=== PATIENT | female | born 1955 | race African-American/Black ===

== ENCOUNTER 2019-10-25 13:32 | Outpatient (CLI) | payer MEDICARE, SELFPAY ==
--- NOTE | ~2019-10-25 | MM_ITS ---
EXAMINATION: MM screening [facility] BI w maciel HISTORY: Screening mammogram TECHNIQUE: Craniocaudal and mediolateral oblique 3-D tomosynthesis images were obtained and synthetic 2-D images were generated. CAD analysis was submitted and interpreted. COMPARISON: Comparison to multiple prior studies sequentially, with oldest reviewed study dated 12/08. BREAST PARENCHYMAL COMPOSITION: There are scattered areas of fibroglandular density. FINDINGS: There is no evidence of suspicious mass, calcification, or architectural distortion to sugg est malignancy in either breast. There has been no suspicious interval change. IMPRESSION: 1. No mammographic evidence of malignancy. 2. Recommend routine screening mammography in one year. BI-RADS Category 1: Negative Reviewed, dictated and finalized at location A.
== END 2019-10-25 13:33 | disposition home or self-care (01) ==
PROVIDERS: PCP Family Medicine; Visit Provider Physician Assistant
DX: Z12.31 Encounter for screening mammogram for malignant neoplasm of breast (principal)
CPT/HCPCS: 77063; 77067

== ENCOUNTER 2020-01-24 13:25 | Outpatient (CLI) | payer MEDICARE, SELFPAY ==
--- NOTE | ~2020-01-24 | DEXA_ITS ---
Bone Density Report Name: Esther Faria Age: 64 Sex: Female Ethnicity: Black Date of : 1955 Indication: postmenopausal; height loss; Referring Provider: Grace Prajapati Study: Bone densitometry was performed. Exam Date: January 24, 2020 Accession number: [id number] Bone Density: Region BMD T-score Z-score Classification AP Spine (L1-L4) 1.006 -0.4 0.7 Normal Femoral Neck (Left) 0.739 -1.0 -0.2 Normal Total Hip (Left) 0.883 -0.5 0.0 Normal Total Hip Bilateral Avg 0.857 -0.7 -0.2 Normal Femoral Neck (Right) 0.679 -1.5 -0.6 Osteopenia Total Hip (Right) 0.831 -0.9 -0.3 Normal World Health Organization criteria for BMD impression classify patients as: Normal (T-score at or above -1.0), Osteopenia (T-score between -1.0 and -2.5), or Osteoporosis (T-score at or below -2.5). 10-year Fracture Risk(1): Major Osteoporotic Fracture 4.1% Hip Fracture 0.4% Reported Risk Factors: [place] (Black), Neck BMD=0.679, BMI=25.2 (1) FRAX(R) Version 3.08. Fracture probability calculated for an untreated patient. Fracture probability may be lower if the patient has received treatment. Previous Exams: Region Exam Age BMD T-score BMD Change BMD Change Date g/cm2 vs Baseline vs Previous AP Spine(L1-L4) 01/24/2020 64 1.006 -0.4 -0.309(-23.5%) -0.046(-4.4%)* 04/22/2015 59 1.052 0.0 -0.262(-19.9%) -0.150(-12.5%) 11/16/2010 55 1.202 1.4 -0.112(-8.5%)* -0.112(-8.5%)* 10/23/2005 50 1.314 2.4 Total Hip(Left) 01/24/2020 64 0.883 -0.5 -0.083(-8.6%)# -0.025(-2.8%) 04/22/2015 59 0.908 -0.3 -0.058(-6.0%)# -0.013(-1.4%)# 11/16/2010 55 0.921 -0.2 -0.045(-4.7%)* -0.045(-4.7%)* 10/23/2005 50 0.966 0.2 Total Hip(Right) 01/24/2020 64 0.831 -0.9 -0.091(-9.9%)# -0.033(-3.8%)* 04/22/2015 59 0.864 -0.6 -0.058(-6.3%)# -0.043(-4.8%)# 11/16/2010 55 0.907 -0.3 -0.015(-1.6%) -0.015(-1.6%) 10/23/2005 50 0.922 -0.2 *Denotes significance at 95% confidence level, LSC for AP Spine = 0.022 g/cm2, LSC for Total Hip = 0.027 g/cm2 Clinical Information Provided by Patient: Patient maximum height was 65 Menopause Age: 49 No regular weight bearing exercise Does not regularly consume dairy products Onset of menses at age 11 Number of children 1 Impression: The patient has low bone mass, based on the Right Femoral Neck T-score. The patient has an estimated ten-year risk of hip fracture of 0.4% and an estim
== END 2020-01-24 13:26 | disposition home or self-care (01) ==
LOC: ANHIMG 13:29
PROVIDERS: PCP Family Medicine; Visit Provider Physician Assistant
DX: Z78.0 Asymptomatic menopausal state (principal)
CPT/HCPCS: 77080

== ENCOUNTER 2021-04-12 09:10 | Outpatient (CLI) | payer MEDICARE, SELFPAY ==
--- NOTE | ~2021-04-12 | MM_ITS ---
EXAMINATION: MM screening [facility] BI w maciel HISTORY: Screening mammogram TECHNIQUE: Craniocaudal and mediolateral oblique 3-D tomosynthesis images were obtained and synthetic 2-D images were generated. CAD analysis was submitted and interpreted. COMPARISON: 10/25/2019, 10/21/2018, 10/14/2017 bilateral screening mammogram examinations BREAST PARENCHYMAL COMPOSITION: There are scattered areas of fibroglandular density. FINDINGS: There is no evidence of suspicious mass, calcification, or architectural distortion to sugg est malignancy in either breast. There has been no suspicious interval change. IMPRESSION: 1. No mammographic evidence of malignancy. 2. Recommend routine screening mammography in one year. BI-RADS Category 1: Negative Reviewed, dictated and finalized at location A. MBLER GOLD FRAME
== END 2021-04-12 09:11 | disposition home or self-care (01) ==
PROVIDERS: PCP Family Medicine; Visit Provider Physician Assistant
DX: Z12.31 Encounter for screening mammogram for malignant neoplasm of breast (principal)
CPT/HCPCS: 77063; 77067

== ENCOUNTER 2022-05-06 14:30 | Outpatient (CLI) | payer MEDICARE, SELFPAY ==
--- NOTE | ~2022-05-06 | MM_ITS ---
EXAMINATION: MM screening [facility] BI w maciel HISTORY: Screening mammogram TECHNIQUE: Craniocaudal and mediolateral oblique 3-D tomosynthesis images were obtained and synthetic 2-D images were generated. CAD analysis was submitted and interpreted. COMPARISON: 04/12/2021, 10/25/2019, 10/21/2018 bilateral screening mammogram examinations BREAST PARENCHYMAL COMPOSITION: There are scattered areas of fibroglandular density. FINDINGS: Biopsy marker on the right; history of prior benign right breast biopsy. Bilateral benign c alcifications. There is no evidence of suspicious mass, calcification, or architectural distortion to suggest malignancy in either breast. There has been no suspicious interval change. IMPRESSION: 1. No mammographic evidence of malignancy. 2. Recommend routine screening mammography in one year. BI-RADS Category 2: Benign finding(s).... Reviewed, dictated and finalized at location A. ING LOT SPOTTER
--- NOTE | ~2022-05-06 | DEXA_ITS ---
Bone Density Report Name: CK WOLF Age: 66 Sex: Female Ethnicity: Black Date of : 1955 Indication: postmenopausal; screening for osteoporosis; height loss; Referring Provider: DALY LIMA Study: Bone densitometry was performed. Exam Date: May 06, 2022 Accession number: [id number] Bone Density: Region BMD T-score Z-score Classification AP Spine(L1-L4) 0.996 -0.5 0.7 Normal Femoral Neck (Left) 0.711 -1.2 -0.3 Osteopenia Total Hip (Left) 0.856 -0.7 -0.1 Normal Femoral Neck (Right) 0.670 -1.6 -0.6 Osteopenia Total Hip (Right) 0.831 -0.9 -0.2 Normal Total Hip Mean 0.844 -0.8 -0.2 Normal World Health Organization criteria for BMD impression classify patients as: Normal (T-score at or above -1.0), Osteopenia (T-score between -1.0 and -2.5), or Osteoporosis (T-score at or below -2.5). 10-year Fracture Risk(1): Major Osteoporotic Fracture 4.4% Hip Fracture 0.6% Reported Risk Factors: [place] (Black), Neck BMD=0.670, BMI=25.8 (1) FRAX(R) Version 3.08. Fracture probability calculated for an untreated patient. Fracture probability may be lower if the patient has received treatment. Previous Exams: Region Exam Age BMD T-score BMD Change BMD Change Date g/cm2 vs Baseline vs Previous AP Spine (L1-L4) 05/06/2022 66 0.996 -0.5 -0.056 (-5.4%) -0.010 (-1.0%) 01/24/2020 64 1.006 -0.4 -0.046 (-4.4%) -0.046 (-4.4%) 04/22/2015 59 1.052 0.0 Total Hip(Left) 05/06/2022 66 0.856 -0.7 -0.051 (-5.7%) -0.026 (-3.0%) 01/24/2020 64 0.883 -0.5 -0.025 (-2.8%) -0.025 (-2.8%) 04/22/2015 59 0.908 -0.3 Total Hip(Right) 05/06/2022 66 0.831 -0.9 -0.033 (-3.8%) 0.000 (0.0%) 01/24/2020 64 0.831 -0.9 -0.033 (-3.8%) -0.033 (-3.8%) 04/22/2015 59 0.864 -0.6 *Denotes significance at 95% confidence level, LSC for AP Spine = 0.022 g/cm2, LSC for Total Hip = 0.027 g/cm2 Clinical Information Provided by Patient: Patient maximum height was 65 Menopause Age: 49 Does not regularly consume dairy products Drinks caffeinated beverages Onset of menses at age 11 Number of children 1 Impression: The patient has low bone mass, based on the Right Femoral Neck T-score. The patient has an estimated ten-year risk of hip fracture of 0.6% and an estimated ten-year risk of major fracture of 4.4%, based on the WHO FRAX algorithm. No significant bone loss was observed. Discussion: BONE DENSITY IS LOW
== END 2022-05-06 14:31 | disposition home or self-care (01) ==
LOC: ANHIMG 14:33
PROVIDERS: PCP Family Medicine; Visit Provider Family Medicine
DX: Z12.31 Encounter for screening mammogram for malignant neoplasm of breast (principal); Z78.0 Asymptomatic menopausal state; M85.852 Other specified disorders of bone density and structure, left thigh; M85.851 Other specified disorders of bone density and structure, right thigh
CPT/HCPCS: 77063; 77067; 77080

== ENCOUNTER 2023-07-03 15:24 | Outpatient (CLI) | payer MEDICARE, SELFPAY ==
--- NOTE | ~2023-07-03 | MM_ITS ---
EXAMINATION: MM screening [facility] BI w maciel HISTORY: Screening mammogram TECHNIQUE: Craniocaudal and mediolateral oblique 3-D tomosynthesis images were obtained and synthetic 2-D images were generated. CAD analysis was submitted and interpreted. COMPARISON: 05/06/2022, 04/12/2021, 10/25/2019 bilateral screening mammogram examinations BREAST PARENCHYMAL COMPOSITION: There are scattered areas of fibroglandular density. FINDINGS: Biopsy marker on the right; history of prior benign right breast biopsy. There is no eviden ce of suspicious mass, calcification, or architectural distortion to suggest malignancy in either rodolfo ast. There has been no suspicious interval change. IMPRESSION: 1. No mammographic evidence of malignancy. 2. Recommend routine screening mammography in one year. BI-RADS Category 1: Negative Reviewed, dictated and finalized at location A. LEWARE ADMINISTRATOR
== END 2023-07-03 15:25 | disposition home or self-care (01) ==
PROVIDERS: PCP Family Medicine; Visit Provider Family Medicine
DX: Z12.31 Encounter for screening mammogram for malignant neoplasm of breast (principal)
CPT/HCPCS: 77063; 77067

== ENCOUNTER 2024-08-13 09:05 | Outpatient (CLI) | payer MEDICARE, SELFPAY ==
--- NOTE | ~2024-08-13 | DEXA_ITS ---
Bone Density Report Name: CK WOLF Age: 69 Sex: Female Ethnicity: Black Date of : 1955 Indication: postmenopausal; screening for osteoporosis; height loss; Referring Provider: CK AKBAR Study: Bone densitometry was performed. Exam Date: August 13, 2024 Accession number: [id number] Bone Density: Region BMD T-score Z-score Classification AP Spine(L2, L3, L4) 1.069 -0.1 1.3 Normal Femoral Neck (Left) 0.725 -1.1 -0.2 Osteopenia Total Hip (Left) 0.876 -0.5 0.1 Normal Femoral Neck (Right) 0.721 -1.2 -0.2 Osteopenia Total Hip (Right) 0.877 -0.5 0.1 Normal Total Hip Mean 0.877 -0.5 0.1 Normal World Health Organization criteria for BMD impression classify patients as: Normal (T-score at or above -1.0), Osteopenia (T-score between -1.0 and -2.5), or Osteoporosis (T-score at or below -2.5). 10-year Fracture Risk(1): Major Osteoporotic Fracture 4.0% Hip Fracture 0.4% Reported Risk Factors: [place] (Black), Neck BMD=0.725, BMI=25.8 (1) FRAX(R) Version 3.08. Fracture probability calculated for an untreated patient. Fracture probability may be lower if the patient has received treatment. Previous Exams: Region Exam Age BMD T-score BMD Change BMD Change Date g/cm2 vs Baseline vs Previous AP Spine (L2-L4) 08/13/2024 69 1.069 -0.1 0.009 (0.8%) 0.062 (6.2%)* 05/06/2022 66 1.007 -0.7 -0.053 (-5.0%) -0.001 (-0.1%) 01/24/2020 64 1.008 -0.6 -0.052 (-4.9%) -0.052 (-4.9%) 04/22/2015 59 1.060 -0.2 Total Hip(Left) 08/13/2024 69 0.876 -0.5 -0.031 (-3.4%) 0.020 (2.4%) 05/06/2022 66 0.856 -0.7 -0.051 (-5.7%) -0.026 (-3.0%) 01/24/2020 64 0.883 -0.5 -0.025 (-2.8%) -0.025 (-2.8%) 04/22/2015 59 0.908 -0.3 Total Hip(Right) 08/13/2024 69 0.877 -0.5 0.013 (1.5%) 0.046 (5.5%)* 05/06/2022 66 0.831 -0.9 -0.033 (-3.8%) 0.000 (0.0%) 01/24/2020 64 0.831 -0.9 -0.033 (-3.8%) -0.033 (-3.8%) 04/22/2015 59 0.864 -0.6 *Denotes significance at 95% confidence level, LSC for AP Spine = 0.022 g/cm2, LSC for Total Hip = 0.027 g/cm2 Clinical Information Provided by Patient: Patient maximum height was 65 Menopause Age: 49 Does not regularly consume dairy products Drinks caffeinated beverages Onset of menses at age 11 Number of children 1 Impression: The patient has low bone mass, based on the Right Femoral Neck T-score. The patient has an estimated ten-year risk of hip fracture of 0.4% and an estimated ten-year risk of major fracture of 4%, based on the WHO FRAX algorithm. No significant bone loss was observed. Discussion: BONE DENSITY IS LOW AT ONE OR MORE SKELETAL SITES. This patient's lowest T-score is low at one or more skeletal sites. It meets the World Health Organization's (WHO) criteria for ?low bone mass? (T-score between -1.0 and -2.5). The patient's 10-year risk of fracture as calculated by FRAX is less than the threshold where pharmacological therapy is recommended by the National Osteoporosis Foundation (NOF). However, all treatment decisions require clinical judgment and consideration of individual patient factors, including patient preferences, comorbidities, previous drug use, risk factors not captured in the FRAX model (e.g., frailty, falls, vitamin D deficiency, increased bone turnover, interval significant decline in bone density) and possible under or overestimation of fracture risk by FRAX. The patient should follow a healthful lifestyle (good nutrition with adequate calcium and vitamin D, and appropriate weight-bearing exercise). Follow-Up: Consider repeating this study in 2 to 3 years to reassess this patient's status, or sooner if there is some new clinical indication. Reported by: RUBEN on 08/13/2024 9:50:00 AM. Reviewed, dictated and finalized at location AIzzy [facility]
--- NOTE | ~2024-08-13 | MM_ITS ---
EXAMINATION: MM screening alicia BI w maciel HISTORY: Screening TECHNIQUE: Craniocaudal and mediolateral oblique 3-D tomosynthesis images were obtained and synthetic 2-D images were generated. CAD analysis was submitted and interpreted. COMPARISON: Comparison to multiple prior studies sequentially, with oldest reviewed study dated 10/14. BREAST PARENCHYMAL COMPOSITION: Dense: The breasts are heterogeneously dense, which may obscure small masses FINDINGS: There is no evidence of suspicious mass, calcification, or architectural distortion to sugg est malignancy in either breast. There has been no suspicious interval change. IMPRESSION: 1. No mammographic evidence of malignancy. 2. Recommend routine screening mammography in one year. BI-RADS Category 1: Negative Reviewed, dictated and finalized at location B.
--- OUTSIDE RECORDS SUMMARY | 2024-08-13 09:12 | XMS_ITS | Clinical Summary ---
Author Organization [facility] [place] [address] [place] [address] Address [address] [place] [address] Care Team Providers Care It Administrative Assistant Name Role Phone Anahy Bernal DO Primary Care Provider +1- [phone] Allergies Active Allergy Reactions Criticality Noted Date Comments Erythromycin Stomach upset Low Reaction: upset stomach, Medications fluticasone (FLONASE) 50 mcg/actuation nasal spray inhale 1 spray by intranasal route every day in each nostril 0 spray 0 6 Active bisoprolol-hydro CHLOROthiazide (ZIAC) 2.5-6.25 mg per tablet 0 0 5 Active atorvastatin (LIPITOR) 10 mg tablet daily. Active venlafaxine XR (EFFEXOR-XR) 150 mg 24 hr capsule Take 1 capsule (150 mg total) by mouth daily 4 Active nitrofurantoin monohydrate (MACROBID) 100 mg capsuleIndicatio ns:Acute cystitis with hematuria Take 1 capsule (100 mg total) by mouth 2 (two) times a day for 5 days 10 capsule 5 08/04/19 25 Active Problems Problem Noted Date Diagnosed Date Sinusitis 06/23/2014 Overview (08/01/2016): Sinusitis Encounters Date Type Department Care Team Description 07/31/2024 Results Follow-Up [facility] [place] [address] [place] [address] Danay Mckeon NP 07/29/2024 8:57 PM CDT - 07/29/2024 11:59 PM CDT Hospital Encounter [facility] [address] [place] [address] Acute cystitis with hematuria Discharge Disposition: Discharge to home or self care 07/29/2024 4:30 PM CDT Office Visit [facility] [place] [address] [place] [address] Mariana Malhotra PA Acute cystitis with hematuria (Primary Dx) from Last 3 Months Surgical History Surgery Date Site/Laterality Comments OTHER SURGICAL HISTORY Surgery Left foot LIPOMA RESECTION back Medical History Medical History Date Comments Delivered by section Ce sarean delivery Hypertension Hyperlipidemia Anxiety Social History Tobacco Use Types Packs/Day Years Used Date Smoking Tobacco: Never Smokeless Tobacco: Never Tobacco Cessation:Counseling Given: Yes Comments No Sex and Gender Information Value Date Recorded Sex Assigned at Not on file 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 Gender Identity Not on file Sexual Orientation Not on file Obstetrics History Last Filed Vital Signs Vital Sign Reading Time Taken Comments Blood Pressure 128/68 07/29/2024 4:30 PM CDT Pulse 78 07/29/2024 4:30 PM CDT Temperature 36.6 C (97.8 F) 07/29/2024 4:30 PM CDT Respiratory Rate 17 07/29/2024 4:30 PM CDT Oxygen Saturation 98% 07/29/2024 4:30 PM CDT Inhaled Oxygen Concentration - - Weight 61.7 kg (136 lb) 07/29/2024 4:30 PM CDT Height 160 cm (5' 3 ) 07/29/2024 4:30 PM CDT Body Mass Index 24.09 07/29/2024 4:30 PM CDT Plan of Treatment Health Maintenance Due Date Last Done Comments Breast Cancer Screening-Mammogram 1955 Colon Cancer Screening-Colonoscopy 1955 Fall Risk Assessment 1955 Hepatitis C Screening 1955 Osteoporosis Screening-Bone Density Scan 1955 DTaP/Tdap/Td Vaccine (1 - Tdap) 1965 Hepatitis B Screening 1972 Pneumococcal vaccine 65+ (1 of 1 - PCV) 2004 Zoster Vaccine (2 of 3) 05/10/2015 03/15/2015 Depression Screening 07/11/2018 07/11/2017, 07/12/19 18 Well Visit 65+ 08/07/2019 Influenza Vaccine (Season Ended) 2024 Procedures Procedure Name Priority Date/Time Associated Diagnosis Comments POCT URINALYSIS DIPSTICK Routine 07/29/2024 4:38 PM CDT Acute cystitis with hematuria URINE CULTURE Routine 07/29/2024 12:00 PM CDT Acute cystitis with hematuria from Last 3 Months Results * (ABNORMAL) POCT urinalysis dipstick (07/29/2024 4:38 PM CDT) Color, Urine, POC Yellow Clarity, ur, POC Cloudy(A) Clear Glucose, ur, POC Negative Negative MG/DL Bilirubin, ur, POC Negative Negative, Small, Moderate, Large Ketones, ur, POC Negative Negative Specific [place], POC 1.025 1.003 - 1.030 Blood, ur, POC Moderate(A) Negative pH, ur, POC 6.0 5.0 - 8.0 Protein, ur, POC 300.(A) Negative Urobilinogen, urine, POC 1.0 0.2 - 1.0 mg/dL Nitrite, ur, POC Positive(A) Negative Leukocytes, ur, POC Moderate(A) Negative Lot Number [id number] Urine 07/29/2024 4:38 PM CDT Mariana MONAHAN POINT OF CARE TEST ORDERABLES Final Result * (ABNORMAL) Urine culture Urine, bladder (07/29/2024 12:00 PM CDT) Report Final Report: Greater than or equal to 100,000 colonies/mL of Escherichia coli (.) Comment:Testing performed by : [facility], [address] [place] [place]., [address] Organism ESCHERICHIA COLI STEFFI Urine, bladder 07/29/2024 12 :00 PM CDT 07/30/2024 12:14 AM CDT Narrative STEFFI VALLADARES - 08/01/2024 6:15 AM CDT Testing performed by [facility] Microbiology Laboratory ([phone]) Organism Antibiotic Method Susceptibility Escherichia coli Ampicillin INTERPRETATION Susceptible Escherichia coli Cefazolin INTERPRETATION Susceptible Escherichia coli Nitrofurantoin INTERPRETATION Susceptible Escherichia coli Gentamicin INTERPRETATION Susceptible Escherichia coli Trimethoprim with Sulfamethoxazole IN TERPRETATION Susceptible Escherichia coli Meropenem INTERPRETATION Susceptible Escherichia coli Cefepime INTERPRETATION Susceptible Escherichia coli Ciprofloxacin INTERPRETATION Susceptible Escherichia coli Ceftazidime INTERPRETATION Susceptible Escherichia coli Ceftriaxone INTERPRETATION Susceptible Escherichia coli Piperacillin/Tazobactam INTERPRETATIO N Susceptible Escherichia coli Cephalexin INTERPRETATION Susceptible Escherichia coli Cefuroxime-axetil INTERPRETATION Susceptible Escherichia coli Cefdinir INTERPRETATION Susceptible Mariana MONAHAN LAB MICROBIOLOGY - GENERAL ORDERABLES Final Result Performing Organization Address City/State/[facility] Co de Phone Number STEFFI [phone] [address] Department [place] [address] from Last 3 Months Insurance [facility] MDCR HMO [facility] MEDICARE Address: [facility] [address] [place] [address] [facility] MEDICARE ADVANTAGE Care Teams It Administrative Assistant Relationship Specialty Start Date End Date Anahy Bernal DO [address] [place] [address] [address] PCP - General Family Medicine 09/27/23
--- OUTSIDE RECORDS SUMMARY | 2024-08-13 09:12 | XMS_ITS | Referral Summary ---
Author Organization [facility] [address] [place] [address] Address [address] [place] [address] Care Team Providers Care Title Supervisor Name Role Phone Anahy Bernal DO Primary Care Provider +1- [phone] Encounters Date Type Department Care Team Description 07/31/2024 Results Follow-Up [facility] at [address] [phone] Danay Mckeon NP 07/29/2024 8:57 PM CDT - 07/29/2024 11:59 PM CDT Hospital Encounter [address] [address] Acute cystitis with hematuria Discharge Disposition: Discharge to home or self care 07/29/2024 4:30 PM CDT Office Visit [facility] at [address] [phone] Mariana Malhotra PA Acute cystitis with hematuria (Primary Dx) from Last 3 Months Allergies Active Allergy Reactions Criticality Noted Date [...] Diagnosed Date Sinusitis 06/23/2014 Overview (08/01/2016): Sinusitis Social History Tobacco Use Types Packs/Day Years Used Date Smoking Tobacco: Never Smokeless Tobacco: Never Tobacco Cessation:Counseling Given: Yes Comments No Sex and Gender Information Value Date Recorded Sex Assigned at Not on file Legal Sex Female 3:35 AM [employer]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 Gender Identity Not on file Sexual Orientation Not on file Last Filed Vital Signs Vital Sign Reading [...] 07/29/2024 4:30 PM CDT Plan of Treatment Not on file Procedures Procedure Name Priority Date/Time Associated Diagnosis [...] Large Ketones, ur, POC Negative Negative Specific [place], POC 1.025 1.003 - 1.030 Blood, ur, POC Moderate(A) Negative pH, ur, POC 6.0 5.0 - 8.0 Protein, ur, POC 300.(A) Negative Urobilinogen, urine, POC 1.0 0.2 - 1.0 mg/dL Nitrite, ur, POC Positive(A) Negative Leukocytes, ur, POC Moderate(A) Negative Lot Number [id number] Urine 07/29/2024 4:38 PM CDT Mariana MONAHAN POINT OF CARE TEST ORDERABLES Final Result * (ABNORMAL) Urine culture Urine, bladder (07/29/2024 12:00 PM CDT) Report Final Report: Greater than or equal to 100,000 colonies/mL of Escherichia coli (.) Comment:Testing performed by : [facility], [address] [place]., [address] Organism [facility] Urine, bladder 07/29/2024 12 :00 PM CDT 07/30/2024 12:14 AM CDT Narrative [facility] - 08/01/2024 6:15 AM CDT Testing performed by [facility] Microbiology Laboratory ([phone]) Organism Antibiotic Method Susceptibility Escherichia coli Ampicillin [...] INTERPRETATION Susceptible Escherichia coli Cefdinir INTERPRETATION Susceptible us Mariana MONAHAN LAB MICROBIOLOGY - GENERAL ORDERABLES Final Result Performing Organization Address City/State/ZIP [place] Phone Number STEFFI [phone] [facility] Department [place] [address] from Last 3 Months Insurance [facility] MDCR [facility] Address: [address] [address] [place] [address] [facility] MEDICARE ADVANTAGE [facility] Address: [address] [address] [place] [address] Care Teams Title Supervisor Relationship Specialty Start Date End Date Anahy Bernal DO [address] [place] [address] [place] [address] PCP - General Family Medicine 09/27/23
--- OUTSIDE RECORDS SUMMARY | 2024-08-13 09:12 | XMS_ITS | Encounter Summary ---
Author Organization [facility] Address [address] [place] [address] Care Team Providers Care Last Repairer Name Role Phone Anahy Bernal DO Primary Care Provider +1- [phone] Encounter Details Date Type Department Care Team (Late st Contact Info) Description 07/31/2024 Results Follow-Up [facility] at [address] [place] [phone] Danay Mckeon NP [address] [place] [address] Social History Tobacco Use Types Packs/Day Years Used Date Smoking Tobacco: Never Smokeless Tobacco: Never Comments No Sex and Gender Information Value Date Recorded Sex Assigned at Not on file 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 * Result Encounter Note - Gabby Lane NP - 08/01/2024 8:25 AM CDT Please call patient with positive cx result. Organism is susceptible to Macrobid as prescribed. F/Uwith PCP if s/s are not improving. documented in this encounter Plan of Treatment Not on file documented as of this encounter Visit Diagnoses Not on filedocumented in this encounter Care Teams Last Repairer Relationship Specialty Start Date End Date Anahy Bernal DO [address] [place]STR[place] [address] [place] [address] [phone] PCP - General Family Medicine 09/27/23 documented as of this encounter
== END 2024-08-13 09:06 | disposition home or self-care (01) ==
PROVIDERS: PCP Family Medicine; Visit Provider Family Medicine
DX: Z12.31 Encounter for screening mammogram for malignant neoplasm of breast (principal); M85.88 Other specified disorders of bone density and structure, other site; M85.852 Other specified disorders of bone density and structure, left thigh; M85.851 Other specified disorders of bone density and structure, right thigh
CPT/HCPCS: 77063; 77067; 77080